=== PATIENT | female | born 2005 | race Caucasian/White ===

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

== ENCOUNTER 2024-01-22 08:58 | Outpatient (REF) | payer OTHER, SELFPAY ==
[2024-01-22 10:23] LABS: Erythrocyte Sedimentation Rate 7 MM/HR (0-20)
[2024-01-23 10:34] LABS: Lyme Abs Screen <0.90 index
[2024-01-24 20:58] LABS: Anti Nuclear Antibody Screen NEGATIVE (NEGATIVE)
== END 2024-01-22 08:59 | disposition home or self-care (01) ==
LOC: HO.LAB 08:58
PROVIDERS: Visit Provider Psychiatry & Neurology Neurology
DX: G43.009 Migraine without aura, not intractable, without status migrainosus (principal)
CPT/HCPCS: 36415; 85652; 86038; 86617; 86618